=== PATIENT | male | born 1970 | race Asian ===

== ENCOUNTER 2017-11-05 11:56 | Emergency (ER) | payer OTHER ==
[~2017-11-05] VITALS: Ht 157.5 cm; Wt 85.0 kg
[2017-11-05 11:58] VITALS: BP 147/88; PULSE 82; RESP 16; TEMP 98.7; O2SAT 99
[2017-11-05] MEDS ORDERED: LIPI10TA PO (12:07)
[2017-11-05] MEDS ORDERED: LOSA100T PO (12:07)
--- NOTE | 2017-11-05 12:37 | PD ---
HPI Chief Complaint: Exposure to Blood/Body Fluids Time Seen by Provider: 12:03 Travel History International Travel<30 days: No Contact w/Intl Traveler<30days: No Traveled to known affect area: No History of Present Illness HPI 47-year-old male that presents to the ED for evaluation of exposure to possible HIV and hepatitis antigens to his left eye. 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 He states that he flushed it immediately. He denies any other medical complaints. He states that he had a exposure about 3 years ago and had a booster of his hepatitis B. Other than this he denies any other exposures. He states that currently he has no symptoms. Exposure happened less than an hour ago. No other medical issues at this time. No pain. PFSH Past Medical History Hypertension: Yes Past Surgical History Surgical History: No Previous Surgery Social History Alcohol Use: No Tobacco Use: No Substance Use: No Allergies-Medications (Allergen,Severity, Reaction): Coded Allergies: captopril (Verified Allergy, Severe, 11/05/17) dry cough Reported Meds & Prescriptions Reported Meds & Active Scripts Active Reported Losartan (Losartan Potassium) 100 Mg Tab 100 Mg PO DAILY Lipitor (Atorvastatin Calcium) 10 Mg Tab 10 Mg PO HS Review of Systems Except as stated in HPI: all other systems reviewed are Neg Physical Exam Narrative GENERAL: SKIN: Warm and dry. HEAD: Atraumatic. Normocephalic. EYES: Pupils equal and round. No scleral icterus. No injection or drainage. AOM intact bilaterally. ENT: No nasal bleeding or discharge. Mucous membranes pink and moist. Tongue is midline. No uvula deviation. NECK: Trachea midline. No JVD. CARDIOVASCULAR: Regular rate and rhythm. No murmurs, S3, S4. RESPIRATORY: No accessory muscle use. Clear to auscultation. Breath sounds equal bilaterally. GASTROINTESTINAL: Abdomen soft, non-tender, nondistended. Hepatic and splenic margins not palpable. MUSCULOSKELETAL: Extremities without clubbing, cyanosis, or edema. No obvious deformities. Full range of motion of the upper and lower extremities bilaterally. 2+ pulses bilaterally. NEUROLOGICAL: Awake and alert. No obvious cranial nerve deficits. Motor grossly within normal limits. Five out of 5 muscle strength in the arms and legs. Normal speech. PSYCHIATRIC: Appropriate mood and affect; insight and judgment normal. Data Data Last Documented VS Vital Signs Date Time Temp Pulse Resp B/P (MAP) Pulse Ox O2 Delivery O2 Flow Rate FiO2 11/05/17 11:58 98.7 82 16 147/88 (107) 99 Orders Orders Ed Discharge Order (11/05/17 12:35) MDM Medical Decision Making Medical Screen Exam Complete: Yes Emergency Medical Condition: Yes Medical Record Reviewed: Yes Differential Diagnosis Exposure versus normal exam versus body fluid exposure Narrative Course 47-year-old male that presents to the ED for evaluation of exposure to antigen of HIV and possible hepatitis. Patient was properly examined and was found to have no signs of acute distress. 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 Apparently patient was exposed to what appears to be the control for the machine. Apparently this has inert antigens of the HIV and hepatitis virus. 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 Patient only got exposure to his left eye. He washed it immediately. Because this appears to be a inert virus and antigen very low probability at this will cause any issues. Because of their own shortness of what he actually going to his eye I did offer him PEP versus waiting for labs and eval by [employer]. He prefers to wait for employee med. Patient has less than a 0.1% chance of getting infected even if this was a live virus. I think at this time this is reasonable. He was counseled however that he needs to follow-up closely with employee med for further management and to get his blood drawn through the next 6 months to make sure he does not convert or if he needs a hepatitis update. He agrees with this plan. He was given paperwork for the employee med. See ED worsening symptoms. Follow-up with PCP. Case discussed with my attending Dr Garcia who was made aware of findings and agrees with plan. Diagnosis Primary Impression: Exposure to blood or body fluid Referrals: [employer] [facility] Patient Instructions: General Instructions Additional Instructions: F/u with [employer]. See ED if worst. Med/Other Pt SpecificInfo: No Change to Meds Disposition: 01 DISCHARGE HOME Condition: Stable James Soni PA Nov 05, 2017 12:37
== END 2017-11-05 13:10 | disposition home or self-care (01) ==
LOC: NEPE 11:56
DX: Z77.21 Contact with and (suspected) exposure to potentially hazardous body fluids (principal)
CPT/HCPCS: 99282